=== PATIENT | female | born 1960 | race American Indian/Alaskan Native ===

== ENCOUNTER 2017-04-06 07:47 | Inpatient (IN) | payer OTHER ==
[2017-04-06] MEDS ORDERED: ASPIRIN PO ONE (08:03)
[2017-04-06 08:45] LABS: Basophils % (Auto) 0.5 % (0.0-1.8); Eosinophils % (Auto) 1.1 % (0.0-4.3); Hemoglobin 12.5 gm/dl (10.1-14.3); Lymphocytes # (Auto) 1.9 K/mm3 (1.2-5.4); Lymphocytes % (Auto) 42.7 % (13.4-35.0); Mean Corpuscular HGB Conc 33 % (30-34); Mean Corpuscular Hemoglobin 32 pg (28-32); Mean Corpuscular Volume 98 fl (79-97); Monocytes # (Auto) 0.3 K/mm3 (0.0-0.8); Monocytes % (Auto) 7.9 % (0.0-7.3); Platelet Count 133 K/mm3 (140-440); Red Blood Count 3.89 M/mm3 (3.65-5.03); Red Cell Distribution Width 13.8 % (13.2-15.2)
[2017-04-06 08:58] LABS: Alanine Aminotransferase 10 units/L (7-56); Albumin 4.4 g/dL (3.9-5); BUN/Creatinine Ratio 17; Blood Urea Nitrogen 12 mg/dL (7-17); Calcium 9.5 mg/dL (8.4-10.2); Hemolysis Index 16
[2017-04-06 09:54] LABS: Bacteria,Urine 1+ /HPF (Negative); Mucus,Urine FEW /HPF; WBC,Urine < 1.0 /HPF (0.0-6.0)
[2017-04-06 10:16] LABS: Bilirubin,Urine Negative (Negative); Blood,Urine Small (Negative); Color,Urine Yellow (Yellow)
[2017-04-06 10:17] LABS: Nitrite,Urine Negative (Negative); Protein,Urine <15 mg/dL mg/dL (Negative); Urobilinogen,Urine < 2.0 mg/dL (<2.0)
[2017-04-06] MEDS ORDERED: ZOFRAN IV ONE (22:00)
[2017-04-06] MEDS ORDERED: NITRO-BID 2% TP ONE (22:00)
[2017-04-06] MEDS ORDERED: MORPHINE IV ONE (22:00)
--- NOTE | 2017-04-06 22:10 | Emergency Department Report ---
HPI - General Chief Complaint: Chest Pain Time Seen by Provider: 04/06/17 21:44 - HPI HPI: Room 26 The patient is a 56-year-old female presenting with a chief complaint of chest pain. Patient states her symptoms began 3 days ago with intermittent substernal heaviness. Patient denies shortness of breath, nausea/vomiting or diaphoresis. The patient currently gives her chest pain or score of 2/10. The patient states she's never had a stress test or cardiac catheterization Location: Chest Duration: 4 days Quality: Heaviness Severity: 2/10 Modifying factors: [see above] Context: [see above] Mode of transportation: [not driving] ED Past Medical Hx - Past Medical History Previous Medical History?: Yes Hx Hypertension: Yes Additional medical history: acid reflux - Surgical History Past Surgical History?: No - Family History Family history: no significant - Social History Smoking Status: Never Smoker Substance Use Type: None (denies illicit drug use), Alcohol (occasional) ED Review of Systems ROS: Stated complaint: CHEST PAIN Other details as noted in HPI Constitutional: denies: diaphoresis Respiratory: denies: shortness of breath Cardiovascular: chest pain Gastrointestinal: denies: nausea, vomiting Physical Exam - Physical Exam Vital Signs: Vital Signs 04/06/17 07:57 Temperature 98.7 F Pulse Rate 78 Respiratory 18 Rate Blood Pressure 157/82 O2 Sat by Pulse 98 Oximetry Physical Exam: GENERAL: The patient is well-developed well-nourished female lying on stretcher not appearing to be in acute distress. [] HEENT: Normocephalic. Atraumatic. Extraocular motions are intact. Patient has moist mucous membranes. NECK: Supple. Trachea midline CHEST/LUNGS: Clear to auscultation. There is no respiratory distress noted. HEART/CARDIOVASCULAR: Regular. There is no tachycardia. There is no gallop rub or murmur. ABDOMEN: Abdomen is soft, nontender. Patient has normal bowel sounds. There is no abdominal distention. SKIN: There is no rash. There is no edema. There is no diaphoresis. NEURO: The patient is awake, alert, and oriented. The patient is cooperative. The patient has normal speech MUSCULOSKELETAL: There is no evidence of acute injury. ED Course Vital Signs 04/06/17 07:57 Temperature 98.7 F Pulse Rate 78 Respiratory 18 Rate Blood Pressure 157/82 O2 Sat by Pulse 98 Oximetry ED Medical Decision Making - Lab Data Result diagrams: 04/06/17 08:21 04/06/17 08:21 Laboratory Tests 04/06/17 04/06/17 04/06/17 08:21 08:21 08:31 WBC 4.5 RBC 3.89 Hgb 12.5 Hct 38.0 MCV 98 H MCH 32 MCHC 33 RDW 13.8 Plt Count 133 L Lymph % (Auto) 42.7 H [place] % (Auto) 7.9 H Eos % (Auto) 1.1 Baso % (Auto) 0.5 Lymph # 1.9 [place] # 0.3 Eos # 0.0 Baso # 0.0 Seg Neutrophils % 47.8 Seg Neutrophils # 2.1 Sodium 144 Potassium 4.3 Chloride 101.7 Carbon Dioxide 27 Anion Gap 20 BUN 12 Creatinine 0.7 Estimated GFR > 60 BUN/Creatinine Ratio 17 Glucose 92 Calcium 9.5 Total Bilirubin 0.40 AST 16 ALT 10 Alkaline Phosphatase 55 Troponin T < 0.010 Total Protein 8.0 Albumin 4.4 Albumin/Globulin Ratio 1.2 Urine Color Yellow Urine Turbidity Clear Urine pH 6.0 Ur Specific [place] 1.005 Urine Protein <15 mg/dl Urine Glucose (UA) Negative Urine Ketones Negative Urine Blood Small A Urine Nitrite Negative Ur Reducing Substances Not Reportable Urine Bilirubin Negative Urine Ictotest Not Reportable Urine Urobilinogen < 2.0 Ur Leukocyte Esterase Negative Urine WBC (Auto) < 1.0 Urine RBC (Auto) 2.0 Urine Bacteria (Auto) 1+ Urine Mucus Few 04/06/17 04/06/17 11:13 16:47 WBC RBC Hgb Hct MCV MCH MCHC RDW Plt Count Lymph % (Auto) [place] % (Auto) Eos % (Auto) Baso % (Auto) Lymph # [place] # Eos # Baso # Seg Neutrophils % Seg Neutrophils # Sodium Potassium Chloride Carbon Dioxide Anion Gap BUN Creatinine Estimated GFR BUN/Creatinine Ratio Glucose Calcium Total Bilirubin AST ALT Alkaline Phosphatase Troponin T < 0.010 < 0.010 Total Protein Albumin Albumin/Globulin Ratio Urine Color Urine Turbidity Urine pH Ur Specific [place] Urine Protein Urine Glucose (UA) Urine Ketones Urine Blood Urine Nitrite Ur Reducing Substances Urine Bilirubin Urine Ictotest Urine Urobilinogen Ur Leukocyte Esterase Urine WBC (Auto) Urine RBC (Auto) Urine Bacteria (Auto) Urine Mucus - EKG Data -: EKG Interpreted by Ia EKG shows normal: sinus rhythm Rate: normal - EKG Data When compared to previous EKG there are: previous EKG unavailable - Radiology Data Radiology results: image reviewed (chest x-ray) interpreted by me: Chest x-ray-no focal infiltrates, no pneumothorax - Differential Diagnosis ACS, GERD, pericarditis Critical care attestation.: If time is entered above; I have spent that time in minutes in the direct care of this critically ill patient, excluding procedure time. ED Disposition Clinical Impression: Chest pain Disposition: OP ADMIT IP TO THIS HOSP Is pt being admited?: Yes Does the pt Need Aspirin: Yes Condition: Fair Instructions: Chest Pain (ED) Referrals: PRIMARY CARE, [Primary Care Provider] - 3-5 Days Time of Disposition: 22:08 (hospitalist notified (Dr. Walsh))
--- NOTE | 2017-04-06 22:35 | XRay Report ---
FINAL REPORT PROCEDURE: XR CHEST 1V AP TECHNIQUE: Chest radiograph anteroposterior view. CPT 51507 HISTORY: chest pain COMPARISON: No prior studies are available for comparison. FINDINGS: Heart: Normal. Mediastinum/Vessels: Normal. Lungs/Pleural space: Normal. Bony thorax: No acute osseous abnormality. Life support devices: None. IMPRESSION: No acute cardiopulmonary abnormality.
[2017-04-06] MEDS ORDERED: ASPIRIN ONE (23:07)
--- NOTE | 2017-04-06 23:21 | History and Physical Report ---
History of Present Illness Date of examination: 04/06/17 Date of admission: 04/06/2017 Chief complaint: Chief complaint: Left-sided chest pain for 3 days History of present illness: JIMENA The patient is a 56-year-old female presenting with a chief complaint of chest pain. Patient states her symptoms began 3 days ago with intermittent substernal heaviness. Patient denies shortness of breath, nausea/vomiting or diaphoresis. The patient currently gives her chest pain or score of 2/10. The patient states she's never had a stress test or cardiac catheterization.No exacerbating or relieving factors Past Medical History Previous Medical History?: Yes Hx Hypertension: Yes Additional medical history: acid reflux Surgical History Past Surgical History?: No Family History Family history: no significant Social History Smoking Status: Never Smoker Substance Use Type: None (denies illicit drug use), Alcohol (occasional) Review of System: Constitutional: no fever, no chills, no weight loss Ears, eyes, nose, mouth and throat: no nasal congestion, no nasal discharge, no sinus pressure, no vision change, no red eye. Neck: No neck pain or rigidity. Cardiovascular: chest pain, no orthopnea, no palpitations, no leg swelling Respiratory: No shortness of breath, no cough, no congestion, no wheezing Gastrointestinal: no abdominal pain, no nausea, no vomiting Genitourinary : no dysuria, no hematuria Musculoskeletal: no joint swelling or muscle ache Integumentary: no rash, no pruritis Neurological: no parathesias, no numbness, no tingling Endocrine: no cold or heat intolerance, no polyuria or polydipsia Hematologic/Lymphatic: no easy bruising, no easy bleeding, no gland swelling Allergic/Immunologic: no urticaria, no angioedema. Medications and Allergies Allergies Allergy/AdvReac Type Severity Reaction Status Date / Time No Known Allergies Allergy Verified 04/06/17 21:54 Home Medications Medication Instructions Recorded Confirmed Last Taken Type No Known Home Medications [No 04/07/17 04/07/17 Unknown History Reported Home Medications] Exam - Constitutional Vitals: Temp Pulse Resp BP Pulse Ox 98.1 F 76 16 131/79 100 04/06/17 22:43 04/06/17 22:43 04/06/17 22:43 04/06/17 22:43 04/06/17 22:43 General appearance: Present: no acute distress, well-nourished - EENT Eyes: Present: PERRL ENT: hearing intact, clear oral mucosa - Neck Neck: Present: supple, normal ROM - Respiratory Respiratory effort: normal Respiratory: bilateral: CTA - Cardiovascular Heart rate: 76 Rhythm: regular Heart Sounds: Present: S1 & S2. Absent: rub, click - Extremities Extremities: no ischemia, pulses intact, pulses symmetrical, No edema Peripheral Pulses: within normal limits - Abdominal General gastrointestinal: Present: soft, non-tender, non-distended, normal bowel sounds Female genitourinary: Present: normal - Rectal Rectal Exam: deferred - Integumentary Integumentary: Present: clear, warm, dry - Musculoskeletal Musculoskeletal: gait normal, strength equal bilaterally - Psychiatric Psychiatric: appropriate mood/affect, intact judgment & insight - Neurologic Neurologic: CNII-XII intact, moves all extremities - Allied Health Allied health notes reviewed: nursing, case management Results - Labs CBC & Chem 7: 04/06/17 23:36 04/06/17 23:36 Labs: Laboratory Last Values WBC 4.5 K/mm3 (4.5-11.0) 04/06/17 08:21 RBC 3.89 M/mm3 (3.65-5.03) 04/06/17 08:21 Hgb 12.5 gm/dl (10.1-14.3) 04/06/17 08:21 Hct 38.0 % (30.3-42.9) 04/06/17 08:21 MCV 98 fl (79-97) H 04/06/17 08:21 MCH 32 pg (28-32) 04/06/17 08:21 MCHC 33 % (30-34) 04/06/17 08:21 RDW 13.8 % (13.2-15.2) 04/06/17 08:21 Plt Count 133 K/mm3 (140-440) L 04/06/17 08:21 Lymph % (Auto) 42.7 % (13.4-35.0) H 04/06/17 08:21 [place] % (Auto) 7.9 % (0.0-7.3) H 04/06/17 08:21 Eos % (Auto) 1.1 % (0.0-4.3) 04/06/17 08:21 Baso % (Auto) 0.5 % (0.0-1.8) 04/06/17 08:21 Lymph # 1.9 K/mm3 (1.2-5.4) 04/06/17 08:21 [place] # 0.3 K/mm3 (0.0-0.8) 04/06/17 08:21 Eos # 0.0 K/mm3 (0.0-0.4) 04/06/17 08:21 Baso # 0.0 K/mm3 (0.0-0.1) 04/06/17 08:21 Seg Neutrophils % 47.8 % (40.0-70.0) 04/06/17 08:21 Seg Neutrophils # 2.1 K/mm3 (1.8-7.7) 04/06/17 08:21 Sodium 144 mmol/L (137-145) 04/06/17 08:21 Potassium 4.3 mmol/L (3.6-5.0) 04/06/17 08:21 Chloride 101.7 mmol/L (98-107) 04/06/17 08:21 Carbon Dioxide 27 mmol/L (22-30) 04/06/17 08:21 Anion Gap 20 mmol/L 04/06/17 08:21 BUN 12 mg/dL (7-17) 04/06/17 08:21 Creatinine 0.7 mg/dL (0.7-1.2) 04/06/17 08:21 Estimated GFR > 60 ml/min 04/06/17 08:21 BUN/Creatinine Ratio 17 % 04/06/17 08:21 Glucose 92 mg/dL (65-100) 04/06/17 08:21 Calcium 9.5 mg/dL (8.4-10.2) 04/06/17 08:21 Total Bilirubin 0.40 mg/dL (0.1-1.2) 04/06/17 08:21 AST 16 units/L (5-40) 04/06/17 08:21 ALT 10 units/L (7-56) 04/06/17 08:21 Alkaline Phosphatase 55 units/L (35-129) 04/06/17 08:21 Troponin T < 0.010 ng/mL (0.00-0.029) 04/06/17 16:47 Total Protein 8.0 g/dL (6.3-8.2) 04/06/17 08:21 Albumin 4.4 g/dL (3.9-5) 04/06/17 08:21 Albumin/Globulin Ratio 1.2 % 04/06/17 08:21 Urine Color Yellow (Yellow) 04/06/17 08:31 Urine Turbidity Clear (Clear) 04/06/17 08:31 Urine pH 6.0 (5.0-7.0) 04/06/17 08:31 Ur Specific [place] 1.005 (1.003-1.030) 04/06/17 08:31 Urine Protein <15 mg/dl mg/dL (Negative) 04/06/17 08:31 Urine Glucose (UA) Negative mg/dL (Negative) 04/06/17 08:31 Urine Ketones Negative mg/dL (Negative) 04/06/17 08:31 Urine Blood Small (Negative) A 04/06/17 08:31 Urine Nitrite Negative (Negative) 04/06/17 08:31 Ur Reducing Substances Not Reportable 04/06/17 08:31 Urine Bilirubin Negative (Negative) 04/06/17 08:31 Urine Ictotest Not Reportable 04/06/17 08:31 Urine Urobilinogen < 2.0 mg/dL (<2.0) 04/06/17 08:31 Ur Leukocyte Esterase Negative (Negative) 04/06/17 08:31 Urine WBC (Auto) < 1.0 /HPF (0.0-6.0) 04/06/17 08:31 Urine RBC (Auto) 2.0 /HPF (0.0-6.0) 04/06/17 08:31 Urine Bacteria (Auto) 1+ /HPF (Negative) 04/06/17 08:31 Urine Mucus Few /HPF 04/06/17 08:31 Short CBC 04/06/17 04/06/17 Range/Units 08:21 23:36 WBC 4.5 5.9 (4.5-11.0) K/mm3 Hgb 12.5 11.9 (10.1-14.3) gm/dl Hct 38.0 36.4 (30.3-42.9) % Plt Count 133 L 130 L (140-440) K/mm3 BMP 04/06/17 04/06/17 08:21 23:36 Sodium 144 140 Potassium 4.3 3.9 Chloride 101.7 100.1 Carbon Dioxide 27 29 BUN 12 10 Creatinine 0.7 0.7 Glucose 92 92 Calcium 9.5 8.8 Cardiac Enzymes 04/06/17 04/06/17 04/06/17 Range/Units 08:21 11:13 16:47 Troponin T < 0.010 < 0.010 < 0.010 (0.00-0.029) ng/mL 04/07/17 04/07/17 Range/Units 02:58 05:32 Troponin T < 0.010 < 0.010 (0.00-0.029) ng/mL Liver Function 04/06/17 Range/Units 08:21 Total Bilirubin 0.40 (0.1-1.2) mg/dL AST 16 (5-40) units/L ALT 10 (7-56) units/L Alkaline Phosphatase 55 (35-129) units/L Albumin 4.4 (3.9-5) g/dL Urine 04/06/17 Range/Units 08:31 Urine Color Yellow (Yellow) Urine pH 6.0 (5.0-7.0) Ur Specific [place] 1.005 (1.003-1.030) Urine Protein <15 mg/dl (Negative) mg/dL Urine Glucose (UA) Negative (Negative) mg/dL - Imaging and Cardiology EKG: report reviewed (normal sinus rhythm nonspecific ST-T wave changes) Chest x-ray: report reviewed Assessment and Plan Advance Directives: Yes (full code) VTE prophylaxis?: Chemical Plan of care discussed with patient/family: Yes - Patient Problems (1) Chest pain Current Visit: Yes Status: Acute Qualifiers: Chest pain type: unspecified Qualified Code(s): R07.9 - Chest pain, unspecified Plan to address problem: chest pain rule out AL protocol. Serial cardiac enzymes and Lexiscan in the morning. Costochondritis and reflux esophagitis to be considered as a differential diagnosis. (2) Hypertension Current Visit: Yes Status: Chronic Qualifiers: Hypertension type: essential hypertension Qualified Code(s): I10 - Essential (primary) hypertension Plan to address problem: Antihypertensives if necessary.patient not on any antihypertensives . BP in Er 100/70 (3) GERD (gastroesophageal reflux disease) Current Visit: Yes Status: Chronic Qualifiers: Esophagitis presence: without esophagitis Qualified Code(s): K21.9 - Gastro -esophageal reflux disease without esophagitis Plan to address problem: on PPIs/H2 blockers (4) DVT prophylaxis Current Visit: Yes Status: Acute Plan to address problem: Lovenox 40 mg subcutaneous daily
[2017-04-06] MEDS ORDERED: SODIUM CHLORIDE FLUSH SYRINGE 10 ML IV PRN (23:23)
[2017-04-06] MEDS ORDERED: MORPHINE IV PRN (23:23)
[2017-04-06] MEDS ORDERED: NITROSTAT SL PRN (23:23)
[2017-04-06] MEDS ORDERED: D5NS 1,000 ML IV SCH (23:45)
[2017-04-06 23:55] LABS: Basophils % (Auto) 0.5 % (0.0-1.8); Eosinophils # (Auto) 0.1 K/mm3 (0.0-0.4); Eosinophils % (Auto) 1.3 % (0.0-4.3); Hematocrit 36.4 % (30.3-42.9); Hemoglobin 11.9 gm/dl (10.1-14.3); Lymphocytes # (Auto) 1.9 K/mm3 (1.2-5.4); Lymphocytes % (Auto) 32.7 % (13.4-35.0); Mean Corpuscular HGB Conc 33 % (30-34); Mean Corpuscular Hemoglobin 32 pg (28-32); Mean Corpuscular Volume 98 fl (79-97); Monocytes # (Auto) 0.6 K/mm3 (0.0-0.8); Monocytes % (Auto) 10.1 % (0.0-7.3); Platelet Count 130 K/mm3 (140-440); Red Blood Count 3.72 M/mm3 (3.65-5.03); Red Cell Distribution Width 14.1 % (13.2-15.2)
[2017-04-07 00:22] LABS: BUN/Creatinine Ratio 14; Blood Urea Nitrogen 10 mg/dL (7-17); Calcium 8.8 mg/dL (8.4-10.2); Hemolysis Index 7
[2017-04-07] MEDS ORDERED: ZOFRAN IV PRN (06:36)
[2017-04-07] MEDS ORDERED: LEXISCAN IV ONE ×2 (08:01→08:08)
[2017-04-07 09:09] VITALS: BP 156/91
[2017-04-07] MEDS ORDERED: ECOTRIN PO SCH (10:00)
--- NOTE | 2017-04-07 10:13 | Event Note ---
Date: 04/07/17 lexiscan stress: lv ef 72%. no evidence of ischemia or necrosis.
[2017-04-07] MEDS ORDERED: Fluarix Quad 2017-2018(36 MOS+ IM ONE (12:00)
--- NOTE | 2017-04-07 14:23 | Discharge Summary ---
Providers - Providers Date of Admission: 04/06/17 22:05 Date of discharge: 04/07/17 Attending physician: JORGE HAILE 04/06/17 Consult to Cardiac Rehabilitation [CONS] Routine Reason For Exam: Phase I Primary care physician: [employer] Hospitalization Condition: Stable Hospital course: Patient is a 56-year-old woman with a history of hypertension and GERD who presented with chest pain. She underwent a thorough cardiac evaluation including negative stress test. Patient states she just move in this area from [facility], She admits to not being the most compliant patient. She wants to establish primary care provider in this area and wants a hematology oncology referral for the high protein in her blood. Stress test negative Chest x-ray no acute finding Discharge diagnoses Chest pain, atypical most likely due to GERD GERD Hypertension Chronic thrombocytopenia History of high protein per patient Disposition: DC- TO HOME OR SELFCARE Time spent for discharge: 34 mintues Core Measure Documentation - Palliative Care Palliative Care/ Comfort Measures: Not Applicable - Core Measures Any of the following diagnoses?: none - VTE Discharge Requirements Deep Vein Thrombosis/Pulmonary Embolism Present on Admission: No Has pt received <5 days of overlap therapy or INR<2.0: No Anticoagulant overlap therapy prescribed at discharge: No Contraindication No Overlap Therapy order at DC: Not Indicated Exam - Physical Exam Narrative exam: GEN: WDWN, NAD, AWAKE, ALERT, ORIENTATED 3 HEENT: NCAT, EOMI, PERRL, OP Clear NECK: supple, no adenopathy, no thyromegaly, no JVD CVS/HEART: RRR, NORMAL S1S2, NO JVD, pulses present bilaterally CHEST/LUNGS: CTA B, Symmetrical chest expansion, good air entry bilaterally GI/Abdomen: soft, NTND, good bowel sounds, no guarding or rebound /Bladder: no suprapubic tenderness, no CVA or paraspinal tenderness EXT/Skin: no c/c/e, no obvious rash MSK: FROM x 4 Neuro: CN 2-12 grossly intact, no new focal deficits Psych: calm - Constitutional Vitals: Temp Pulse Resp BP Pulse Ox 97.3 F L 84 18 156/91 100 04/07/17 03:57 04/07/17 08:27 04/07/17 03:57 04/07/17 08:27 04/07/17 03:57 Plan Activity: other (no strenous activity until cleared by pcp) Diet: low salt Additional Instructions: call [facility] [phone]. take otc Nexium for 7-10 days Follow up with: PRIMARY CARE, [Primary Care Provider] - 3-5 Days [facility] [Provider Group] - 7 Days CHYAO ESCALONA DO [Staff Physician] - 7 Days
--- NOTE | 2017-04-08 04:31 | Treadmill Report ---
NUCLEAR CARDIAC IMAGING REPORT INDICATION FOR PROCEDURE: Chest pain. Informed consent was obtained. Vasodilator stress was achieved with 0.4 mg of intravenous Lexiscan. DESCRIPTION OF PROCEDURE: Resting nuclear cardiac imaging was performed 45 to 60 minutes following the intravenous administration of 10 mCi of technetium-99m Myoview. Stress nuclear imaging was subsequently performed 30 to 45 minutes following the intravenous administration of 28 mCi of technetium-99m Myoview. Images were obtained in a 180-degree arc from 45 degrees BEJARANO to 45 degrees LPO. After data acquisition and reconstruction, the images were processed and reoriented into the vertical long, horizontal long, and horizontal short axis slices. A polar color map of the horizontal short axis slices was generated and reviewed. The rotating planar images were reviewed in cinematic format on the computer console. Gated SPECT imaging demonstrates a post-stress left ventricular ejection fraction of 72% with normal wall motion. Myocardial perfusion imaging demonstrates no significant cavity change between stress and rest. No significant stress induced perfusion abnormalities were seen. Nuclear cardiac imaging demonstrates grossly normal post-stress left ventricular systolic function with no significant evidence for myocardial ischemia or necrosis. [facility]# [id number] STEFANO/WILLIAM HALL
== END 2017-04-07 17:16 | disposition home or self-care (01) | DRG 392 ==
LOC: ED 07:47 → 4A 22:05
PROVIDERS: ADMIT Internal Medicine; ATTEND Internal Medicine
PROC: 3E0234Z Introduction of Serum, Toxoid and Vaccine into Muscle, Percutaneous Approach (ICD-10-PCS; principal; 2017-04-07)
DX: K21.9 Gastro-esophageal reflux disease without esophagitis (principal); I10 Essential (primary) hypertension; D69.6 Thrombocytopenia, unspecified; Z72.89 Other problems related to lifestyle; Z23 Encounter for immunization
CPT/HCPCS: 36415; 71045; 78452; 80048; 80053; 81001; 83036; 84484; 85025; 90686; 93005; 93010; 93017; 96374; 96375; A9502; J2270; J2405; J2785; J7042